=== PATIENT | male | born 1950 | race African-American/Black ===

== ENCOUNTER 2017-04-14 09:28 | Day surgery (SDC) | payer BC, OTHER ==
[2017-04-11 13:45] VITALS: BMI 30.8
[2017-04-14] MEDS ORDERED: PROPOFOL 20 ML ONE ×2 (11:48)
[2017-04-14] MEDS ORDERED: MIDAZOLAM HCL 2 MG/2 ML SINGLE DOSE VIAL ONE (11:48)
[2017-04-14] MEDS ORDERED: IOHEXOL 300 MG/ML INFUS..BTL IV ONE ×2 (12:29)
--- NOTE | 2017-04-14 12:48 | OP ---
Operative Note - Note: Operative Date: 04/14/17 Pre-Operative Diagnosis: right ureteral stone Operation: cystoscopy/right retrograde pyelogram/right ureteroscopy Findings: mild to moderate right hydronephrosis distal ureteral stone fragments noted Post-Operative Diagnosis: Same as Pre-op Surgeon: Mukul Martin Anesthesia: General
[2017-04-14] MEDS ORDERED: KETOROLAC TROMETHAMINE 30 MG/1 ML VIAL ONE (12:50)
[2017-04-14] MEDS ORDERED: ONDANSETRON 4 MG/2 ML VIAL IVPUSH PRN (12:58)
[2017-04-14] MEDS ORDERED: oxyCODONE HCL 5 MG TABLET PO PRN (12:58)
[2017-04-14] MEDS ORDERED: LACTATED RINGERS SOLUTION 1,000 ML IV SCH (13:00)
[2017-04-14 14:11] VITALS: TEMP 98.7
[2017-04-14 16:01] VITALS: BP 132/70; PULSE 65
--- NOTE | 2017-04-14 22:23 | OP ---
DATE OF OPERATION: 04/14/2017 PREOPERATIVE DIAGNOSIS: Right ureteral stone. POSTOPERATIVE DIAGNOSIS: Mild right hydronephrosis with stone fragments in the right ureter. ATTENDING: Tashi Eden MD ANESTHESIA: General. DESCRIPTION OF OPERATION: The patient was brought in the operating room, placed in supine position on the operating table. General anesthesia was administered. Preoperative antibiotics were also administered. The patient was then placed in a dorsal lithotomy position and prepped and draped in the usual sterile manner. Cystoscopy was performed, and an obstructive prostate with 1+ to 2+ bladder trabeculation was noted. The right ureteral orifice was noted. A retrograde pyelogram showed a [id number] right hydronephrosis. There was no specific area within the ureter which was consistent with an obstruction. At this point, the distal ureteral orifice was intubated with an ureteroscope, and there was no evidence of a distal ureteral stone noted. Stone fragments were seen. It was decided because of adequate drainage that the patient will be observed. It was decided to cause further trauma to the ureter would require a stent. The patient had expressed that he does not want a stent placed. Since there was no significant obstruction seen or distal stone noted, it was decided to observe the patient conservatively. The patient tolerated the procedure very well. No complications were noted. The disposition of the patient was to the recovery room. TASHI EDEN M.D. [id number]
== END 2017-04-14 16:01 | disposition home or self-care (01) ==
LOC: JASU-SURG 09:28
PROVIDERS: ATTEND Urology
PROC: 0TJ98ZZ Inspection of Ureter, Via Natural or Artificial Opening Endoscopic (ICD-10-PCS; principal; 2017-04-14 11:00)
PROC: BT1DZZZ Fluoroscopy of Right Kidney, Ureter and Bladder (ICD-10-PCS; 2017-04-14 11:00)
DX: N13.2 Hydronephrosis with renal and ureteral calculous obstruction (principal); I10 Essential (primary) hypertension; E11.9 Type 2 diabetes mellitus without complications
CPT/HCPCS: 76000-TC-FY; 82962; 94760